=== PATIENT | female | born 1970 | race Two or more races ===

== ENCOUNTER 2018-12-16 22:18 | Emergency (ER) | payer OTHER ==
[~2018-12-16] VITALS: Ht 167.6 cm; Wt 156.5 kg
[2018-12-17 04:00] VITALS: BP 189/75
[2018-12-17] MEDS ORDERED: HYDROcodone-ACET 10/325MG TAB PO ONE (07:00)
[2018-12-17] MEDS ORDERED: KETOROLAC TROMETH 60MG/2ML VIAL IM ONE (07:00)
== END 2018-12-17 07:19 | disposition home or self-care (01) ==
LOC: ER 22:24
DX: G89.29 Other chronic pain (principal); M25.562 Pain in left knee; Z76.0 Encounter for issue of repeat prescription; I10 Essential (primary) hypertension; Z98.51 Tubal ligation status
CPT/HCPCS: 29505; 73562; 96372; 99283; J1885